=== PATIENT | female | born 2000 | race African-American/Black ===

== ENCOUNTER 2023-06-16 17:31 | Emergency (ER) | payer MEDICAID ==
[~2023-06-16] VITALS: Ht 165.1 cm; Wt 53.0 kg
[2023-06-16 17:42] VITALS: O2SAT 100
[2023-06-16] MEDS: ACETAMINOPHEN 325MG TABLET PO ONE (18:24)
[2023-06-16] MEDS ORDERED: BENZ1LOZ73 MT (19:12)
[2023-06-16] MEDS ORDERED: ACET-2708 MT (19:12)
[2023-06-16] MEDS: THROAT LOZENGES-BENZOCAINE/MENTH/CETYLPYRD CL LOZENGES MM PRN (19:24)
[2023-06-16 19:31] VITALS: BP 136/99; PULSE 67; RESP 20; TEMP 98.3
== END 2023-06-16 19:34 | disposition home or self-care (01) ==
LOC: ER 17:31
DX: J06.9 Acute upper respiratory infection, unspecified (principal); J02.9 Acute pharyngitis, unspecified
CPT/HCPCS: 71045; 81025; 87070; 87430; 93005; 99285